=== PATIENT | male | born 1960 | race Caucasian/White ===

== ENCOUNTER 2018-10-26 19:01 | Emergency (ER) | payer BC ==
[~2018-10-26] VITALS: Ht 180.3 cm; Wt 131.5 kg
[~2018-10-26 19:01] MED LIST: ASPIRIN EC81 M1 PO; CEPHALEXIN 500500 M3 PO; GEMFIBROZIL 60600 MG PO; HYDROCODONE-AP1 EAC6 PO; LIDOCAINE 22 %/30 GM TOP; LISINOPRIL20 MG PO; NIACIN 500 MG500 M1 PO; PERCOCET PO
[2018-10-26] MEDS ORDERED: CELEBREX 200 M200 M1 PO (19:19)
[2018-10-26] MEDS ORDERED: GABAPENTIN600 M1 PO (19:19)
[2018-10-26 19:37] LABS: ABSOLUTE LYMPHOCYTES 0.9 thou/uL (0.8-5.3); ABSOLUTE MONOCYTES 0.6 thou/uL (0.0-1.2); BASOPHILS 0.6 %; EOSINOPHILS 0.3 %; HEMATOCRIT 43.8 % (42.0-52.0); HEMOGLOBIN 14.7 gm/dL (14.0-18.0); LYMPHOCYTES 13.9 %; MCH 30.5 pg (26.0-34.0); MCHC 33.5 g/dL (28.0-37.0); MCV 90.8 fL (80.0-100.0); MONOCYTES 9.1 %; MPV 8.1 fl. (7.2-11.1); NUCLEATED RBCS 0 /100WBC; PLATELET COUNT* 171 thou/uL (150-400); POLYS 76.1 %; RBC 4.83 mil/uL (4.50-6.00); RDW-CV 14.5 % (10.5-14.5); WBC 6.5 thou/uL (4.0-11.0)
[2018-10-26 19:40] LABS: INFLUENZA B ANTIGEN None Detected (None Detect)
[2018-10-26 19:48] LABS: CALCIUM 8.7 mg/dL (8.5-10.1); CREATININE 1.1 mg/dL (0.6-1.3); POTASSIUM 3.2 mmol/L (3.5-5.1)
[2018-10-26 19:59] LABS: ALBUMIN 3.6 g/dL (3.4-5.0); TOTAL BILIRUBIN 0.7 mg/dL (<0.1-1.0); TOTAL PROTEIN 7.4 g/dL (6.4-8.2)
[2018-10-26] MEDS ORDERED: PROMETHAZINE V473 ML PO (20:33)
[2018-10-26] MEDS ORDERED: OSELB75 PO (20:33)
[2018-10-26] MEDS ORDERED: PROAIR HFA8.5 GM INH (20:33)
[2018-10-26] MEDS ORDERED: ZPAK PO (20:33)
[2018-10-26] MEDS ORDERED: ACETAMINOPHEN-1 EAC1 PO (20:33)
[2018-10-26 21:16] VITALS: BP 117/75
--- NOTE | 2018-10-27 16:36 | EKG ---
[place] [address] ELECTROCARDIOGRAM REPORT Name: ELVIRA VERA Room: [facility]#: [id number] Admission: 10/26/18 Attend Phys: Discharge: 10/26/18 Date of : 56 Report #: [id number] THIS REPORT FOR: //name// [facility] ED Test Date: 2018-10-26 Test Time: 19:26:08 Pat Name: ELVIRA VERA Department: Room: Gender: Specialist Managers: [place] : 1960 Requested By: Kari Richter Order Number: [id number] MD: Aldo Snyder Measurements Intervals [place] Rate: 116 P: 12 [place]: 134 QRS: 93 QRSD: 107 T: -1 QT: 319 QTc: 444 Interpretive Statements Sinus tachycardia RSR' in V1 or V2, right VCD or RVH Borderline T abnormalities, inferior leads Baseline wander in lead(s) V1,V2 No previous ECG available for comparison Electronically Signed On 10-27-2018 16:35:59 [employer] by Aldo Snyder [email or web address] <ELECTRONICALLY SIGNED> By: Aldo Snyder MD, [facility] 10/27/18 1635 25 25 Aldo Snyder MD, [facility] /EPI
== END 2018-10-26 21:16 | disposition home or self-care (01) ==
LOC: M.ERS 19:01
PROVIDERS: Physician Assistant
DX: J09.X2 Influenza due to identified novel influenza A virus with other respiratory manifestations (principal); J20.9 Acute bronchitis, unspecified; I10 Essential (primary) hypertension